=== PATIENT | male | born 1955 ===

== ENCOUNTER → 2019-11-18 11:23 | Outpatient (CLI) | payer OTHER, SELFPAY ==
--- NOTE | ~2019-11-18 | XR_ITS ---
EXAMINATION: XR chest 2V DATE: 11/18/2019 11:37 INDICATION: Personal history of nicotine dependence TECHNIQUE: PA and lateral views of the chest are obtained. COMPARISON: None available FINDINGS: There are lucencies of the upper lung zones. There is a questionable nodule of the left jonathon g base. There is no pleural effusion or pneumothorax. The cardiomediastinal silhouette is normal. The re is mild thoracic spondylosis. IMPRESSION: 1. Possible nodule of the left lung base. Further evaluation with CT of the chest is recommended. Reviewed, dictated and finalized at location A. R [employer] IMPRESSION: 1. Possible nodule of the left lung base. Further evaluation with CT of the [address] is recommended.
== END ==
PROVIDERS: PCP Family Medicine; Visit Provider Family Medicine
DX: Z87.891 Personal history of nicotine dependence (principal); R91.8 Other nonspecific abnormal finding of lung field
CPT/HCPCS: 71046